=== PATIENT | female | born 1990 | race Caucasian/White ===

== ENCOUNTER → 2018-04-11 | Outpatient (RCR) | payer BC ==
--- NOTE | 2018-01-11 11:32 | PT INITIAL EVALUATION ---
MEDICAL DIAGNOSIS: Lymphedema of Right Upper Extremity, Metastatic Melanoma to Lymph Nodes TREATMENT DIAGNOSIS: Lymphedema of Right Upper Extremity, Metastatic Melanoma to Lymph Nodes DATE OF ONSET: 01/11/18 SUBJECTIVE: Renetta is a 27 year old female presenting to physical therapy following increased lymphedema of her R UE. Pt history is significant for metastatic melanoma with surgical lymph node removal in the R axilla and bio chemo treatment in 2009. Following one year later pt developed swelling of the R UE and received treatment for lymphedema via PT in [place], [place]. Pt has been fitted for garments, but is not always consistent at wearing them and has noticed swelling following two more pregnancies. Pt reports stiffness in her joints in her hand as well a occasional nerve sensation discrepancies in the digits. 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 Palpation: Edema is soft in texture without pitting throughout the entire UE. No skin changes are present Sensation: Pt reports occasional numbness and tingling on the base of her MCP joints on the palmar aspect of the hand and in to the middle digits. Special Tests: Stemmer's sign (+) on 3rd & 4th digits, and dorsum;(-) on thumb Other Objective Findings: Lymphedema Life Impact Scale (LLIS): 39/72 ASSESSMENT: Renetta presents with signs and symptoms consistent with grade 1 lymphedema secondary to lymph node removal with metastatic melanoma. Physical therapy is indicated to improve the above listed deficits and increase pt function with ADL's. Short Term Goals In 4 weeks pt will improve LLIS to <31/72 for improved function with ADL's. In 4 weeks pt will decrease wrist circumference on the R side to less than 16cm for a 60% reduction in lymph volume compare to the contralateral limb for improved function with ADL's. In 4 weeks pt will be independent with HEP and compression garment use for maintenance of edema for improved function with ADL's. Patient's Goals Decrease volume of arm and improve function PLAN: Patient to be seen for Manual Therapy/STM/MET Range of Motion Stretching Home Exercise Program Therapeutic Activities 5x/Week for 4 Weeks If you have any questions, comments, or concerns about this report or plan, please contact me at . Thank you, Do Carrillo, PT, DPT, CLT MTDD
--- NOTE | 2018-02-01 17:49 | PT PLAN OF CARE ---
Physician: Javier Grimes MD Patient is being seen: 4-5x/Week Therapist: Do Carrillo, PT, DPT, CLT Medical Diagnosis: Lymphedema of Right Upper Extremity, Metastatic Melanoma to Lymph Nodes Treatment Diagnosis: Lymphedema of Right Upper Extremity, Metastatic Melanoma to Lymph Nodes Date of Onset: 01/11/18 Date of Initial Evaluation: 01/11/18 Date patient was last seen: 02/01/18 Number of treatments: 10 Number of cancellations/No shows: 1 INTERVENTIONS: Manual Therapy/STM/MET Range of Motion Stretching Home Exercise Program Therapeutic Activities GOALS: In 4 weeks pt will improve LLIS to <31/72 for improved function with ADL's. In 4 weeks pt will decrease wrist circumference on the R side to less than 16cm for a 60% reduction in lymph volume compare to the contralateral limb for improved function with ADL's. In 4 weeks pt will be independent with HEP and compression garment use for maintenance of edema for improved function with ADL's. PATIENT'S GOAL: Decrease volume of arm and improve function Status of Patient's Goals: In Progress Patient Compliance: Good Prognosis: Good Reasons for continuing therapy: Renetta shows good response to MLD treatment. At this time pt shows good reductions in the upper arm and forearm as well as circumferential reductions in the digits. Pt reports improved hand mobility as well as better fit of clothing and loosening of garments on the upper extremity. Lingering edema is present still in the dorsum and wrist region with minimal reductions at this point. With recent modification to compression wrapping for pt comfort reductions will likely soon be evident. Pt shows improved skin mobility on the dorsum as well as in the digits with fine wrinkles present on finger pads and surrounding the base of the 1st, 2nd and 4th digits. Further PT is indicated for this patient to continue with gains in circumferential reduction as well as to improve functional use of her R UE for ADL's. OBJECTIVE: Pt presents with swelling of the R UE significantly noticeable in the forearm to the digits on the dorsal aspect of the hand. Palpation: Edema is soft in texture without pitting throughout the entire UE. No skin changes are present Sensation: Pt reports occasional numbness and tingling on the base of her MCP joints on the palmar aspect of the hand and in to the middle digits. Special Tests: Stemmer's sign (+) on base of 3rd & 4th digits, and dorsum; (-) on thumb Other Objective Findings: Lymphedema Life Impact Scale (LLIS): 39/72 Circumferential Measures: Initial Evaluation (L,R) in centimeters: 1st digit: 4.5, 6, 2nd digit: 5.5, 5.6, 3rd digit: 6.3, 5.3, 4th digit: 5.5, 6.0, 5th digit: 4.8, 5.0, dorsum: 16.5, 19.2, wrist: 15, 17.8, hand diagonal: 20.5, 21.9, forearm: 23.7, 24.9, elbow: 23.8, 24.4,10 cm above elbow: 27, 27.7 02/01/18 (L,R) in centimeters: 1st digit: 4.5, 6, 2nd digit: 5.5, 5.6, 3rd digit: 5.3, 6.0, 4th digit: 5.5, 5.6, 5th digit: 4.8, 4.7, dorsum: 16.5, 19.2, wrist: 15, 17.8, hand diagonal: 20.5, 21.9, forearm: 23.7, 24.5, elbow: 23.8, 24, 10 cm above elbow: 27, 26 If you have any questions, comments, or concerns about this report or plan, please contact me at . Thank you, Do Carrillo, PT, DPT, CLT ANGELAD
--- NOTE | 2018-02-20 15:50 | PT PLAN OF CARE ---
Physician: Javier Grimes MD Patient is being seen: 5x/Week Therapist: Do Carrillo, PT, DPT, CLT Medical Diagnosis: Lymphedema of Right Upper Extremity, Metastatic Melanoma to Lymph Nodes Treatment Diagnosis: Lymphedema of Right Upper Extremity, Metastatic Melanoma to Lymph Nodes Date of Onset: 01/11/18 Date of Initial Evaluation: 01/11/18 Date patient was last seen: 02/20/18 Number of treatments: 20 Number of cancellations/No shows: 1 INTERVENTIONS: Manual Therapy/STM/MET Range of Motion Stretching Home Exercise Program Therapeutic Activities GOALS: In 4 weeks pt will improve LLIS to <31/72 for improved function with ADL's. In 4 weeks pt will decrease wrist circumference on the R side to less than 16cm for a 60% reduction in lymph volume compare to the contralateral limb for improved function with ADL's. In 4 weeks pt will be independent with HEP and compression garment use for maintenance of edema for improved function with ADL's. PATIENT'S GOAL: Decrease volume of arm and improve function Status of Patient's Goals: In Progress Patient Compliance: Good Prognosis: Good Reasons for continuing therapy: Renetta shows good reductions in the upper arm with return of progress from her vacation as well as further reductions leaving the area above the elbow now equal to the contralateral limb and the elbow and forearm near equal. The fingers are starting to show good reductions expanding into the knuckles with visible wrinkling and dimpling over all knuckles except the 5th digit. The dorsum remains swollen just below the wrist with protein remaining with pitting. However pitting is no longer present anywhere else on the extremity. Further CDT is indicated for this patient to maximize reductions in edema for improved function with ADL's. OBJECTIVE: Pt presents with swelling of the R UE significantly noticeable in the forearm to the digits on the dorsal aspect of the hand. Palpation: Edema is soft in texture without pitting throughout the entire UE. No skin changes are present Sensation: Pt reports occasional numbness and tingling on the base of her MCP joints on the palmar aspect of the hand and in to the middle digits. Special Tests: Stemmer's sign (+) on base of 3rd & 4th digits, and dorsum; (-) on thumb Other Objective Findings: Lymphedema Life Impact Scale (LLIS): 39/72 Circumferential Measures: Initial Evaluation (L,R) in centimeters: 1st digit: 4.5, 6, 2nd digit: 5.5, 5.6, 3rd digit: 6.3, 5.3, 4th digit: 5.5, 6.0, 5th digit: 4.8, 5.0, dorsum: 16.5, 19.2, wrist: 15, 17.8, hand diagonal: 20.5, 21.9, forearm: 23.7, 24.9, elbow: 23.8, 24.4,10 cm above elbow: 27, 27.7 02/01/18 (L,R) in centimeters: 1st digit: 4.5, 6, 2nd digit: 5.5, 5.6, 3rd digit: 5.3, 6.0, 4th digit: 5.5, 5.6, 5th digit: 4.8, 4.7, dorsum: 16.5, 19.2, wrist: 15, 17.8, hand diagonal: 20.5, 21.9, forearm: 23.7, 24.5, elbow: 23.8, 24, 10 cm above elbow: 27, 26 02/20/18 (L,R) in centimeters: 1st digit: 4.5, 5.6, 2nd digit: 5.5, 5.6, 3rd digit: 5.3, 6.0, 4th digit: 5.5, 5.5, 5th digit: 4.8, 5, dorsum: 16.5, 19.0, wrist: 15, 17.5, hand diagonal: 20.5, 21.6, forearm: 23.7, 23.5, elbow: 23.8, 23.4, 10 cm above elbow: 26, 26 If you have any questions, comments, or concerns about this report or plan, please contact me at . Thank you, Do Carrillo, PT, DPT, STEPHANYT ANGELAD
--- NOTE | 2018-03-24 17:28 | PT PLAN OF CARE ---
Physician: Javier Grimes MD Patient is being seen: 3-5x/Week Therapist: Do Carrillo, PT, DPT, CLT Medical Diagnosis: Lymphedema of Right Upper Extremity, Metastatic Melanoma to Lymph Nodes Treatment Diagnosis: Lymphedema of Right Upper Extremity, Metastatic Melanoma to Lymph Nodes Date of Onset: 01/11/18 Date of Initial Evaluation: 01/11/18 Date patient was last seen: 03/24/18 Number of treatments: 31 Number of cancellations/No shows: 3 INTERVENTIONS: Manual Therapy/STM/MET Range of Motion Stretching Home Exercise Program Therapeutic Activities GOALS: In 4 weeks pt will improve LLIS to <31/72 for improved function with ADL's. In 4 weeks pt will decrease wrist circumference on the R side to less than 16cm for a 60% reduction in lymph volume compare to the contralateral limb for improved function with ADL's. In 4 weeks pt will be independent with HEP and compression garment use for maintenance of edema for improved function with ADL's. PATIENT'S GOAL: Decrease volume of arm and improve function Status of Patient's Goals: In Progress Patient Compliance: Good Prognosis: Good Reasons for continuing therapy: Renetta shows great maintenance of reductions in forearm and upper arm. Wrist and hand show slower progression but continue to improve. At this time all knuckles MTP joints are visible with edema reduced to the proximal aspect of the dorsum. Minimal edema with (+) Stemmer's sign remains evident in the 3rd and 4th digits the the proximal phalanx only. Further PT to progress towards new garments for sleeve and hand to maintain reductions and further progression with self management using the pump and self massage. Additionally further reductions are possible with continued MLD and CDT treatment per pt preference with consistency with therapy. OBJECTIVE: Pt presents with swelling of the R UE significantly noticeable in the dorsal aspect of the hand. Palpation: Edema is soft in texture without pitting throughout the entire UE. No skin changes are present Special Tests: Stemmer's sign (+) on base of 3rd & 4th digits, and dorsum; (-) on thumb Other Objective Findings: Lymphedema Life Impact Scale (LLIS): 34/72 Circumferential Measures: Initial Evaluation (L,R) in centimeters: 1st digit: 4.5, 6, 2nd digit: 5.5, 5.6, 3rd digit: 6.3, 5.3, 4th digit: 5.5, 6.0, 5th digit: 4.8, 5.0, dorsum: 16.5, 19.2, wrist: 15, 17.8, hand diagonal: 20.5, 21.9, forearm: 23.7, 24.9, elbow: 23.8, 24.4,10 cm above elbow: 27, 27.7 02/01/18 (L,R) in centimeters: 1st digit: 4.5, 6, 2nd digit: 5.5, 5.6, 3rd digit: 5.3, 6.0, 4th digit: 5.5, 5.6, 5th digit: 4.8, 4.7, dorsum: 16.5, 19.2, wrist: 15, 17.8, hand diagonal: 20.5, 21.9, forearm: 23.7, 24.5, elbow: 23.8, 24, 10 cm above elbow: 27, 26 02/20/18 (L,R) in centimeters: 1st digit: 4.5, 5.6, 2nd digit: 5.5, 5.6, 3rd digit: 5.3, 6.0, 4th digit: 5.5, 5.5, 5th digit: 4.8, 5, dorsum: 16.5, 19.0, wrist: 15, 17.5, hand diagonal: 20.5, 21.6, forearm: 23.7, 23.5, elbow: 23.8, 23.4, 10 cm above elbow: 26, 26 03/24/18 (L,R) in centimeters: 1st digit: 4.5, 5.6, 2nd digit: 5.5, 5.6, 3rd digit: 5.3, 6.0, 4th digit: 5.5, 5.5, 5th digit: 4.8, 5, dorsum: 16.5, 18.9, wrist: 15, 17.5, hand diagonal: 20.5, 21.6, forearm: 23.7, 23.5, elbow: 23.8, 23.4, 10 cm above elbow: 26, 26 (length 43.5) If you have any questions, comments, or concerns about this report or plan, please contact me at . Thank you, Do Carrillo, PT, DPT, CLT ANGELAD
--- NOTE | 2018-04-03 15:19 | PT PLAN OF CARE ---
Physician: Javier Grimes MD Patient is being seen: 5x/Week Therapist: Do Carrillo, PT, DPT, CLT Medical Diagnosis: Lymphedema of Right Upper Extremity, Metastatic Melanoma to Lymph Nodes Treatment Diagnosis: Lymphedema of Right Upper Extremity, Metastatic Melanoma to Lymph Nodes Date of Onset: 01/11/18 Date of Initial Evaluation: 01/11/18 Date patient was last seen: 04/11/18 Number of treatments: 37 Number of cancellations/No shows: 4 INTERVENTIONS: Manual Therapy/STM/MET Range of Motion Stretching Home Exercise Program Therapeutic Activities GOALS: In 4 weeks pt will improve LLIS to <31/72 for improved function with ADL's. In 4 weeks pt will decrease wrist circumference on the R side to less than 16cm for a 60% reduction in lymph volume compare to the contralateral limb for improved function with ADL's. In 4 weeks pt will be independent with HEP and compression garment use for maintenance of edema for improved function with ADL's. PATIENT'S GOAL: Decrease volume of arm and improve function Status of Patient's Goals: In Progress Patient Compliance: Good Prognosis: Good Reasons for continuing therapy: Renetta shows great progress with increased consistency of care with complete decongestive therapy (CDT) consisting of manual lymph drainage as well as compression wrapping. Reductions are evident in the forearm and upper arm with previous compression garments now loosely fitting. In the hand pt shows full reductions in the 1st, 2nd, 4th and 5th digits with negative Stemmer's sign indicating decreased protein rich lymphatic fluid. Edema remains present in the 3 digit with reductions as long as consistent compression wrapping is provided. Reductions were slow to occur along the dorsum where the majority of the initial edema was located with rich protein. Following progression of treatment, all knuckles are visible with decreased swelling and palpable. However, protein with a positive Stemmer's remains at the base of the dorsal aspect of the hand with pitting evident. It is my impression that Renetta would best benefit from continued CDT treatment at this time while obtained reductions are still evident to continue with progress in the reduction of the dorsal aspect of the hand and the 3rd digit for progression towards [facility] management of compression garments and self lymph drainage. Consistency of treatment is imperative at this time as her current compression garments are now loose fitting resulting in little increase in interstitial pressure to maintain edema. With the cost of compression garments, it would be unreasonable to have Renetta order new garments for the next two months to maintain reductions. Instead, with continued treatment, maximal reductions in the dorsum can be achieved with current progression. When this goal is met, pt will be able to order [facility] garments that are custom fitted to maintain interstitial pressures and edema levels. It is my impression with Renetta's rate of reduction, 15 more treatment sessions (3 weeks with 5 treatments a week) will be sufficient to achieve full reductions of all lingering edema as long as consistency is achieved. OBJECTIVE: Pt presents with swelling of the R UE significantly noticeable in the dorsal aspect of the hand. Palpation: Edema is soft in texture without pitting throughout the entire UE. No skin changes are present Special Tests: Stemmer's sign (+) on base of 3rd & 4th digits, and dorsum; (-) on thumb Other Objective Findings: Lymphedema Life Impact Scale (LLIS): 34/72 Circumferential Measures: Initial Evaluation (L,R) in centimeters: 1st digit: 4.5, 6, 2nd digit: 5.5, 5.6, 3rd digit: 6.3, 5.3, 4th digit: 5.5, 6.0, 5th digit: 4.8, 5.0, dorsum: 16.5, 19.2, wrist: 15, 17.8, hand diagonal: 20.5, 21.9, forearm: 23.7, 24.9, elbow: 23.8, 24.4,10 cm above elbow: 27, 27.7 02/01/18 (L,R) in centimeters: 1st digit: 4.5, 6, 2nd digit: 5.5, 5.6, 3rd digit: 5.3, 6.0, 4th digit: 5.5, 5.6, 5th digit: 4.8, 4.7, dorsum: 16.5, 19.2, wrist: 15, 17.8, hand diagonal: 20.5, 21.9, forearm: 23.7, 24.5, elbow: 23.8, 24, 10 cm above elbow: 27, 26 02/20/18 (L,R) in centimeters: 1st digit: 4.5, 5.6, 2nd digit: 5.5, 5.6, 3rd digit: 5.3, 6.0, 4th digit: 5.5, 5.5, 5th digit: 4.8, 5, dorsum: 16.5, 19.0, wrist: 15, 17.5, hand diagonal: 20.5, 21.6, forearm: 23.7, 23.5, elbow: 23.8, 23.4, 10 cm above elbow: 26, 26 03/24/18 (L,R) in centimeters: 1st digit: 4.5, 5.6, 2nd digit: 5.5, 5.6, 3rd digit: 5.3, 6.0, 4th digit: 5.5, 5.5, 5th digit: 4.8, 5, dorsum: 16.5, 18.9, wrist: 15, 17.5, hand diagonal: 20.5, 21.6, forearm: 23.7, 23.5, elbow: 23.8, 23.4, 10 cm above elbow: 26, 26 (length 43.5) 04/11/18 (L,R) in centimeters: 1st digit: 4.5, 5.6, 2nd digit: 5.5, 5.6, 3rd digit: 5.3, 5.9, 4th digit: 5.5, 5.5, 5th digit: 4.8, 5, dorsum: 16.5, 18.3, wrist: 15, 17.5, hand diagonal: 20.5, 20.9, forearm: 23.7, 23.5, elbow: 23.8, 23.4, 10 cm above elbow: 26, 25.8, axilla: R only 29.0 (length 43.5) If you have any questions, comments, or concerns about this report or plan, please contact me at . Thank you, Do Carrillo, PT, DPT, CLT ANGELAD
== END ==
LOC: PT 01-11 08:50
PROVIDERS: ATTEND Internal Medicine Medical Oncology
DX: I89.0 Lymphedema, not elsewhere classified (principal); C77.9 Secondary and unspecified malignant neoplasm of lymph node, unspecified
CPT/HCPCS: 97161

== ENCOUNTER 2018-04-19 17:00 | Outpatient (RCR) | payer BC ==
--- NOTE | 2018-04-13 09:20 | PT PLAN OF CARE ---
Physician: Javier Grimes MD Patient is being seen: 4-5x/Week Therapist: Do Carrillo, PT, DPT, CLT Medical Diagnosis: Lymphedema of Right Upper Extremity, Metastatic Melanoma to Lymph Nodes Treatment Diagnosis: Lymphedema of Right Upper Extremity, Metastatic Melanoma to Lymph Nodes Date of Onset: 01/11/18 Date of Initial Evaluation: 01/11/18 Date patient was last seen: 04/13/18 Number of treatments: 38 Number of cancellations/No shows: 5 INTERVENTIONS: Manual Therapy/STM/MET Range of Motion Stretching Home Exercise Program Therapeutic Activities GOALS: In 4 weeks pt will improve LLIS to <31/72 for improved function with ADL's. In 4 weeks pt will decrease wrist circumference on the R side to less than 16cm for a 60% reduction in lymph volume compare to the contralateral limb for improved function with ADL's. In 4 weeks pt will be independent with HEP and compression garment use for maintenance of edema for improved function with ADL's. PATIENT'S GOAL: Decrease volume of arm and improve function Status of Patient's Goals: In Progress Patient Compliance: Good Prognosis: Good Reasons for continuing therapy: Renetta shows great progress with increased consistency of care with complete decongestive therapy (CDT) consisting of manual lymph drainage as well as compression wrapping. Reductions are evident in the forearm and upper arm with previous compression garments now loosely fitting. In the hand pt shows full reductions in the 1st, 2nd, 4th and 5th digits with negative Stemmer's sign indicating decreased protein rich lymphatic fluid. Edema remains present in the 3 digit with reductions as long as consistent compression wrapping is provided. Reductions were slow to occur along the dorsum where the majority of the initial edema was located with rich protein. Following progression of treatment, all knuckles are visible with decreased swelling and palpable. However, protein with a positive Stemmer's remains at the base of the dorsal aspect of the hand with pitting evident. It is my impression that Renetta would best benefit from continued CDT treatment at this time while obtained reductions are still evident to continue with progress in the reduction of the dorsal aspect of the hand and the 3rd digit for progression towards [facility] management of compression garments and self lymph drainage. Consistency of treatment is imperative at this time as her current compression garments are now loose fitting resulting in little increase in interstitial pressure to maintain edema. With the cost of compression garments, it would be unreasonable to have Renetta order new garments for the next two months to maintain reductions. Instead, with continued treatment, maximal reductions in the dorsum can be achieved with current progression. When this goal is met, pt will be able to order [employer] ex[employer] helper garments that are custom fitted to maintain interstitial pressures and edema levels. It is my impression with Renetta's rate of reduction, 15 more treatment sessions (3 weeks with 5 treatments a week) will be sufficient to achieve full reductions of all lingering edema as long as consistency is achieved. OBJECTIVE: Pt presents with swelling of the R UE significantly noticeable in the dorsal aspect of the hand. Palpation: Edema is soft in texture without pitting throughout the entire UE. No skin changes are present Special Tests: Stemmer's sign (+) on base of 3rd & 4th digits, and dorsum; (-) on thumb Other Objective Findings: Lymphedema Life Impact Scale (LLIS): 34/72 Circumferential Measures: Initial Evaluation (L,R) in centimeters: 1st digit: 4.5, 6, 2nd digit: 5.5, 5.6, 3rd digit: 6.3, 5.3, 4th digit: 5.5, 6.0, 5th digit: 4.8, 5.0, dorsum: 16.5, 19.2, wrist: 15, 17.8, hand diagonal: 20.5, 21.9, forearm: 23.7, 24.9, elbow: 23.8, 24.4,10 cm above elbow: 27, 27.7 02/01/18 (L,R) in centimeters: 1st digit: 4.5, 6, 2nd digit: 5.5, 5.6, 3rd digit: 5.3, 6.0, 4th digit: 5.5, 5.6, 5th digit: 4.8, 4.7, dorsum: 16.5, 19.2, wrist: 15, 17.8, hand diagonal: 20.5, 21.9, forearm: 23.7, 24.5, elbow: 23.8, 24, 10 cm above elbow: 27, 26 02/20/18 (L,R) in centimeters: 1st digit: 4.5, 5.6, 2nd digit: 5.5, 5.6, 3rd digit: 5.3, 6.0, 4th digit: 5.5, 5.5, 5th digit: 4.8, 5, dorsum: 16.5, 19.0, wrist: 15, 17.5, hand diagonal: 20.5, 21.6, forearm: 23.7, 23.5, elbow: 23.8, 23.4, 10 cm above elbow: 26, 26 03/24/18 (L,R) in centimeters: 1st digit: 4.5, 5.6, 2nd digit: 5.5, 5.6, 3rd digit: 5.3, 6.0, 4th digit: 5.5, 5.5, 5th digit: 4.8, 5, dorsum: 16.5, 18.9, wrist: 15, 17.5, hand diagonal: 20.5, 21.6, forearm: 23.7, 23.5, elbow: 23.8, 23.4, 10 cm above elbow: 26, 26 (length 43.5) 04/11/18 (L,R) in centimeters: 1st digit: 4.5, 5.6, 2nd digit: 5.5, 5.6, 3rd digit: 5.3, 5.9, 4th digit: 5.5, 5.5, 5th digit: 4.8, 5, dorsum: 16.5, 18.3, wrist: 15, 17.5, hand diagonal: 20.5, 20.9, forearm: 23.7, 23.5, elbow: 23.8, 23.4, 10 cm above elbow: 26, 25.8, axilla: R only 29.0 (length 43.5) If you have any questions, comments, or concerns about this report or plan, please contact me at . Thank you, Do Carrillo, PT, DPT, CLT ANGELAD
== END 2018-04-19 18:00 | disposition home or self-care (01) ==
LOC: PT 17:00
PROVIDERS: ATTEND Internal Medicine Medical Oncology
DX: I89.0 Lymphedema, not elsewhere classified (principal); C77.9 Secondary and unspecified malignant neoplasm of lymph node, unspecified

== ENCOUNTER → 2018-06-12 | Outpatient (CLI) | payer BC ==
--- NOTE | 2018-06-13 11:16 | RADIOLOGY IMAGING REPORT ---
FACILITY: [facility] PATIENT NAME: MARY AMADOR : [id number] MR: [id number] V: [id number] EXAM DATE: [id number] ORDERING PHYSICIAN: EUGENIO FERNANDEZ TECHNOLOGIST: Anaid Boykin PROCEDURE:BILATERAL DIAGNOSTIC DIGITAL MAMMOGRAM WITH CAD ASSISTED INTERPRETATION & 3D TOMOSYNTHESIS COMPARISON:None. INDICATIONS:LEFT BREAST PAIN LATERAL ASPECT FINDINGS: The breasts are heterogeneously dense which can obscure small masses. There are multiple round calcifications scattered throughout both breasts. There is no demonstration of focal mass of calcifications in either breast. Today's Left breast Ultrasound revealed no abnormality to account for patient's Left breast pain therefore clinical follow-up recommended. DIAGNOSTIC CATEGORY 2--BENIGN FINDING. RECOMMENDATIONS: CLINICAL EVALUATION. IMPRESSION: BIRADS 2: Benign finding. Clinical follow-up recommended for patient's Left breast pain. Dictated by: Samia Castillo M.D. on 06/12/2018 at 14:53 Transcribed by: CHAZ on 06/12/2018 at 15:17 Approved by: Samia Castillo M.D. on 06/13/2018 at 11:15 [facility]
--- NOTE | 2018-06-13 11:16 | RADIOLOGY IMAGING REPORT ---
FACILITY: PATIENT NAME: MARY AMADOR : [id number] MR: [id number] V: [id number] EXAM DATE: [id number] ORDERING PHYSICIAN: EUGENIO FERNANDEZ TECHNOLOGIST: Ellen Pham RDMS(ABD,OBGYN,BR),RVT PROCEDURE:US LEFT BREAST COMPARISON:None. INDICATIONS:LEFT BREAST PAIN PRIOR HISTORY OF MELANOMA, STOPPED BREAST FEEDING OCTOBER 2017. FINDINGS: Multiple sonographic images were obtained along the lateral aspect of the Left breast from the 12-6 o'clock position revealing no sonographic abnormality. In the Left axilla there is a fatty replaced 1.4 x 0.9 x 0.8cm lymph node. DIAGNOSTIC CATEGORY 2--BENIGN FINDING. RECOMMENDATIONS: CLINICAL EVALUATION. IMPRESSION: BIRADS 2: Benign finding. No sonographic abnormality identified along the lateral aspect of the Left breast to account for patient's pain therefore clinical follow-up recommended. Dictated by: Samia Castillo M.D. on 06/12/2018 at 14:50 Transcribed by: CHAZ on 06/12/2018 at 15:12 Approved by: Samia Casitllo M.D. on 06/13/2018 at 11:15 [facility]
== END ==
LOC: MAMO 12:18
PROVIDERS: ATTEND Nurse Practitioner Family
DX: R92.1 Mammographic calcification found on diagnostic imaging of breast (principal)
CPT/HCPCS: 77062; 77066

== ENCOUNTER 2018-08-10 17:00 | Outpatient (RCR) | payer BC ==
--- NOTE | 2018-06-30 10:55 | PT INITIAL EVALUATION ---
MEDICAL DIAGNOSIS: UE Lymphedema, Hx of Malignant Melanoma TREATMENT DIAGNOSIS: UE Lymphedema, Hx of Malignant Melanoma DATE OF ONSET: 06/29/18 SUBJECTIVE: Renetta is a 27 year old female presenting to physical therapy following increased lymphedema of her R UE. Pt history is significant for metastatic melanoma with surgical lymph node removal in the R axilla and bio chemo treatment in 2009. Following one year later pt developed swelling of the R UE and received treatment for lymphedema via PT in [place], [place]. Pt has been fitted for garments, but is not always consistent at wearing them and has noticed swelling following two more pregnancies. Pt reports stiffness in her joints in her hand as well a occasional nerve sensation discrepancies in the digits. Pt received PT with MLD from this PT in the past with good results, but inconsistent attendance. Since discharge pt has no yet received a new garment and so much of the swelling returned wearing her previous garments which are now loose fitting at the upper arm region. 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 Palpation: Edema is soft in texture without pitting throughout the entire UE. No skin changes are present Special Tests: Stemmer's sign (+) on 3rd digit & dorsum Other Objective Findings: Lymphedema Life Impact Scale (LLIS): 40/72 Circumferential Measures (L,R) UE (cm): 1st digit: 5.4, 5.5, 2nd: 5.6, 6 3rd: 5.4, 6.1, 4th: 5.4, 5.7, 5th: 4.8, 5.1, Across knuckles: 17.5, 19.5, Wrist: 15.1, 17, Diagonal hand: 19.9, 23.6, Widest forearm: 24.5, 24.7, Elbow: 24.6, 25.2, 10 cm above elbow: 27.1, 27.1 ASSESSMENT: Renetta presents with signs and symptoms consistent with grade 2 lymphedema secondary to lymph node removal with metastatic melanoma. Physical therapy is indicated to improve the above listed deficits and increase pt function with ADL's. Short Term Goals In 2 MO pt will reduce circumferential volume of the wrist to 16cm for improved function with ADL's. In 2 MO pt will be independent with gym program for improved lymphatic flow and function with ADL's. In 4 MO pt will be compliant with new garments to maintain edema reductions as well as self massage/pump use for independence with treatment. In 4 MO pt will improve LLIS to 30/72 for improved function with ADL's. Patient's Goals Decrease edema, start independent gym program PLAN: Patient to be seen for Manual Therapy/STM/MET Range of Motion Stretching Home Exercise Program Therapeutic Activities 1x/Week, 4 MO If you have any questions, comments, or concerns about this report or plan, please contact me at . Thank you, Do Carrillo, PT, DPT, CLT MTDD
== END 2018-09-27 ==
LOC: PT 17:00
PROVIDERS: ATTEND Nurse Practitioner Family
DX: I89.9 Noninfective disorder of lymphatic vessels and lymph nodes, unspecified (principal); Z85.89 Personal history of malignant neoplasm of other organs and systems
CPT/HCPCS: 97161